=== PATIENT | female | born 1940 | race Caucasian/White ===

== ENCOUNTER → 2018-03-07 | Outpatient (CLI) | payer MEDICARE | END | disposition home or self-care (01) | LOC: RAH 12:22 | PROVIDERS: ATTEND Internal Medicine Endocrinology, Diabetes & Metabolism | DX: E04.2 Nontoxic multinodular goiter (principal) | CPT/HCPCS: 76536 ==

== ENCOUNTER → 2019-03-21 | Outpatient (CLI) | payer MEDICARE | END | disposition home or self-care (01) | LOC: RAH 14:11 | PROVIDERS: ATTEND Internal Medicine Endocrinology, Diabetes & Metabolism | DX: E04.2 Nontoxic multinodular goiter (principal) | CPT/HCPCS: 76536 ==

== ENCOUNTER 2019-06-20 14:22 | Emergency (ER) | payer MEDICARE ==
[2019-06-20] MEDS ORDERED: KETOROLAC TROMETHAMINE 30MG/ML ONE (16:01)
[2019-06-20 16:22] LABS: BASOPHILS % (AUTO) 0.9 % (0.0-5.0); EOSINOPHILS % (AUTO) 0.1 % (0.0-8.0); HEMATOCRIT 42.7 % (36-48); LYMPHOCYTES % (AUTO) 22.5 % (21.0-51.0); MEAN CORPUSCULAR HEMOGLOBIN 30.3 pg (27.0-33.0); MEAN CORPUSCULAR HGB CONC 34.3 g/dL (32.0-36.0); MEAN CORPUSCULAR VOLUME 88.6 fL (79-99); MONOCYTES % (AUTO) 8.7 % (3.0-13.0); NEUTROPHILS % (AUTO) 67.8 % (40.0-77.0); PLATELET COUNT (AUTO) 247 K/uL (130-400); RED BLOOD CELL COUNT(AUTO) 4.82 MIL/uL (4.00-5.50); RED CELL DISTRIBUTION WIDTH 13.8 % (11.0-15.5); WHITE BLOOD COUNT (AUTO) 11.2 K/uL (4.8-10.8)
[2019-06-20 16:31] LABS: POTASSIUM 3.4 mmol/L (3.5-5.1)
[2019-06-20 16:33] LABS: INR 0.99 (0.85-1.15); PARTIAL THROMBOPLASTIN TIME 24.1 SEC (26.3-35.5); PROTHROMBIN TIME 10.4 SEC (9.6-11.6)
[2019-06-20 16:36] LABS: ALBUMIN 3.7 g/dL (3.5-5.0); BILIRUBIN,TOTAL 1.2 mg/dL (0.2-1.0); TOTAL PROTEIN, SERUM 7.3 g/dL (6.0-8.3)
== END 2019-06-20 18:18 | disposition home or self-care (01) ==
LOC: EDH 14:22
DX: M25.562 Pain in left knee (principal); M54.18 Radiculopathy, sacral and sacrococcygeal region; I10 Essential (primary) hypertension; M79.652 Pain in left thigh; Z88.6 Allergy status to analgesic agent; Z88.8 Allergy status to other drugs, medicaments and biological substances
CPT/HCPCS: 36415; 73560; 80053; 85025; 85610; 85730; 93971; 96372; 99285; J1885

== ENCOUNTER → 2019-08-20 | Outpatient (CLI) | payer OTHER | END | disposition home or self-care (01) | LOC: RAH 13:33 | PROVIDERS: ATTEND Internal Medicine Critical Care Medicine | DX: Z13.6 Encounter for screening for cardiovascular disorders (principal) | CPT/HCPCS: 75571 ==

== ENCOUNTER → 2019-11-11 | Outpatient (CLI) | payer MEDICARE ==
[~2019-11-11] VITALS: Ht 170.2 cm; Wt 92.1 kg
[~2019-11-11] MED LIST: REGADENOSON 0.4 MG/5 ML PF SYG IVP SCH
== END | disposition home or self-care (01) ==
LOC: SHCH 08:33
PROVIDERS: ATTEND Internal Medicine Cardiovascular Disease
DX: I10 Essential (primary) hypertension (principal); I51.89 Other ill-defined heart diseases; E78.5 Hyperlipidemia, unspecified; E03.9 Hypothyroidism, unspecified
CPT/HCPCS: 78452; 93017; 96374; A9500 ×2; J2785

== ENCOUNTER → 2019-11-26 | Outpatient (CLI) | payer MEDICARE ==
[~2019-11-26] MED LIST changes: +IOHEXOL 350 MG/ML 100ML INFUS..BTL IV ONE; -REGADENOSON 0.4 MG/5 ML PF SYG IVP SCH
== END | disposition home or self-care (01) ==
LOC: RAH 09:25
PROVIDERS: ATTEND Internal Medicine Cardiovascular Disease
DX: K57.30 Diverticulosis of large intestine without perforation or abscess without bleeding (principal); K44.9 Diaphragmatic hernia without obstruction or gangrene; I70.1 Atherosclerosis of renal artery; I70.0 Atherosclerosis of aorta; M47.816 Spondylosis without myelopathy or radiculopathy, lumbar region; I10 Essential (primary) hypertension; I73.9 Peripheral vascular disease, unspecified; Z90.49 Acquired absence of other specified parts of digestive tract; Z90.710 Acquired absence of both cervix and uterus
CPT/HCPCS: 74174; Q9967

== ENCOUNTER → 2020-03-09 | Outpatient (CLI) | payer MEDICARE | END | disposition home or self-care (01) | LOC: RAH 11:04 | PROVIDERS: ATTEND Internal Medicine Endocrinology, Diabetes & Metabolism | DX: E04.2 Nontoxic multinodular goiter (principal) | CPT/HCPCS: 76536 ==

== ENCOUNTER 2021-04-18 05:54 | Day surgery (SDC) | payer MEDICARE ==
[2021-04-14 11:47] LABS: EOSINOPHILS % (AUTO) 25.6 % (0.0-8.0); HEMATOCRIT 38.5 % (36-48); LYMPHOCYTES % (AUTO) 16.8 % (21.0-51.0); MEAN CORPUSCULAR HEMOGLOBIN 30.4 pg (27.0-33.0); MEAN CORPUSCULAR HGB CONC 32.5 g/dL (32.0-36.0); MEAN CORPUSCULAR VOLUME 93.7 fL (79-99); MONOCYTES % (AUTO) 5.5 % (3.0-13.0); NEUTROPHILS % (AUTO) 50.8 % (40.0-77.0); PLATELET COUNT (AUTO) 198 K/uL (130-400); RED BLOOD CELL COUNT(AUTO) 4.11 MIL/uL (4.00-5.50); RED CELL DISTRIBUTION WIDTH 13.4 % (11.0-15.5); WHITE BLOOD COUNT (AUTO) 11.9 K/uL (4.8-10.8)
[2021-04-14 11:49] LABS: APPEARANCE,URINE Cloudy (CLEAR); BILIRUBIN,URINE Negative (NEGATIVE); COLOR,URINE Dark Yellow (YELLOW); GLUCOSE, URINE (UA) Negative (NEGATIVE); KETONES,URINE Negative (NEGATIVE); LEUKOCYTE ESTERASE ,URINE Moderate (NEGATIVE); NITRATE,URINE Negative (NEGATIVE); OCCULT BLOOD,URINE Small (NEGATIVE); PROTEIN,URINE POS 2+ mg/dL (NEGATIVE)
[2021-04-14 12:17] LABS: BACTERIA,URINE Moderate /HPF (None Seen)
[2021-04-14 12:18] LABS: SQUAMOUS EPITHELIAL CELL,UR Few /HPF (0-2); WBC,URINE 26-50 /HPF (0-1)
[2021-04-14 12:52] LABS: CREATININE 1.1 mg/dL (0.5-1.5); POTASSIUM 4.2 mmol/L (3.5-5.1)
[2021-04-14 13:28] LABS: INR 1.05 (0.85-1.15); PROTHROMBIN TIME 11.4 SEC (9.6-11.6)
[2021-04-14 13:30] LABS: PARTIAL THROMBOPLASTIN TIME 27.8 SEC (26.3-35.5)
[~2021-04-18] VITALS: Ht 170.2 cm; Wt 83.4 kg
[2021-04-18] VITALS (11 sets, daily range): BP systolic 110–134; BP diastolic 46–72
[~2021-04-18 05:54] MED LIST changes: +ASPI-1443 PO; +CARV25TA PO; +CLON0.1T PO; +GABA-529 PO; -IOHEXOL 350 MG/ML 100ML INFUS..BTL IV ONE; +ISOS60TA77 PO; +L.AC1CAP6 PO; +LEVO25CA4 PO; +LOSA100T58 PO; +ROSU20TA31 PO; +VITA1CAP20 PO; +VITAMIN D3 PO
[2021-04-18] MEDS ORDERED: SULF1TAB42 PO (08:18)
[2021-04-18] MEDS ORDERED: NITROGLYCERIN 2 MG VIAL IV ONE (09:05)
[2021-04-18] MEDS ORDERED: SODIUM BICARB 50MEQ 50ML VIAL 50 ML ONE (09:05)
[2021-04-18] MEDS ORDERED: LIDOCAINE HCL 400MG/20ML VIAL ONE (09:05)
[2021-04-18] MEDS ORDERED: HEPARIN 10,000 UNIT/10ML (1,000 UNIT/ML) VIAL ONE (09:05)
[2021-04-18] MEDS ORDERED: IOHEXOL 350 MG/ML 100ML INFUS..BTL IV ONE (09:08)
[2021-04-18] MEDS ORDERED: 0.9%NACL 1000ML 1,000 ML IV ONE (09:21)
[2021-04-18] MEDS ORDERED: MIDAZOLAM HCL 1 MG/ML 2ML VIAL ONE ×3 (10:05→10:33)
[2021-04-18] MEDS ORDERED: MEPERIDINE-PF 25 MG/ML SYG ONE ×3 (10:05→10:33)
[2021-04-18] MEDS ORDERED: IOHEXOL-350 50ML VIAL IV ONE (11:04)
[2021-04-18] MEDS ORDERED: ASPIRIN 325MG EC TAB PO ONE (11:21)
[2021-04-18] MEDS ORDERED: CLOPIDOGREL 300MG TAB ONE (11:22)
[2021-04-18] MEDS ORDERED: 0.9%NACL 1000ML 1,000 ML IV SCH (11:45)
[2021-04-18] MEDS ORDERED: ACETAMINOPHEN WITH CODEINE 1 TAB TAB ONE (14:50)
[2021-04-18] MEDS ORDERED: ACETAMINOPHEN WITH CODEINE 1 TAB TAB PO PRN ×2 (17:45)
== END 2021-04-18 17:34 | disposition home or self-care (01) ==
LOC: DAH 05:54
PROVIDERS: ATTEND Internal Medicine Cardiovascular Disease
DX: I15.0 Renovascular hypertension (principal); I25.119 Atherosclerotic heart disease of native coronary artery with unspecified angina pectoris; I77.4 Celiac artery compression syndrome; R63.4 Abnormal weight loss; F41.0 Panic disorder [episodic paroxysmal anxiety]; Q25.0 Patent ductus arteriosus; Z79.01 Long term (current) use of anticoagulants; Z79.899 Other long term (current) drug therapy; Z98.890 Other specified postprocedural states
CPT/HCPCS: 36245; 36252; 36415 ×2; 37236; 37237; 71045; 75726; 80048; 81001; 85025; 85347; 85610; 85730; 87077; 87088; 87186; 93005; 93458; A4215; A4216; A4221; A4222; A4223 ×3; A4606; A4663; C1760; C1769 ×3; C1876 ×4; C1887; C1894; J1644 ×2; J2175 ×3; J2250 ×3; J3490 ×3; J7030; Q9965 ×2; Q9967 ×2; 99156; 99157

== ENCOUNTER → 2021-06-22 | Outpatient (CLI) | payer MEDICARE ==
[~2021-06-22] MED LIST changes: +SULF1TAB42 PO
== END | disposition home or self-care (01) ==
LOC: SHCH 14:23
PROVIDERS: ATTEND Internal Medicine Cardiovascular Disease
DX: I25.10 Atherosclerotic heart disease of native coronary artery without angina pectoris (principal); I65.23 Occlusion and stenosis of bilateral carotid arteries
CPT/HCPCS: 93880

== ENCOUNTER → 2022-10-18 | Outpatient (CLI) | payer MEDICARE | END | disposition home or self-care (01) | LOC: RAH 13:16 | PROVIDERS: ATTEND Internal Medicine Critical Care Medicine | DX: N64.4 Mastodynia (principal); R92.8 Other abnormal and inconclusive findings on diagnostic imaging of breast | CPT/HCPCS: 76641; 77066 ==

== ENCOUNTER 2023-06-07 03:00 | Emergency (ER) | payer MEDICARE ==
[~2023-06-07] VITALS: Ht 170.2 cm; Wt 89.8 kg
[~2023-06-07 03:00] MED LIST changes: -LOSA100T58 PO; +LOSA100T59 PO; -ROSU20TA31 PO; +ROSU20TA73 PO
[2023-06-07 03:31] LABS: BILIRUBIN,URINE NEGATIVE (NEGATIVE); GLUCOSE, URINE (UA) NEGATIVE (NEGATIVE); KETONES,URINE NEGATIVE (NEGATIVE); LEUKOCYTE ESTERASE ,URINE NEGATIVE Leu/uL (NEGATIVE); NITRATE,URINE NEGATIVE (NEGATIVE); OCCULT BLOOD,URINE LARGE (NEGATIVE); PROTEIN,URINE >=300 mg/dL (NEGATIVE); UROBILINOGEN,URINE 0.2 mg/dL (0.2-1.0)
[2023-06-07 03:32] LABS: BASOPHILS # (AUTO) 0.05 K/uL (0.00-0.20); BASOPHILS % (AUTO) 0.5 % (0.0-5.0); HEMATOCRIT 40.6 % (36-48); IMMATURE GRANULOCYTE ABSOLUTE 0.03 K/uL (0-1); LYMPHOCYTES # (AUTO) 2.6 K/uL (1.0-4.8); LYMPHOCYTES % (AUTO) 26.8 % (21.0-51.0); MEAN CORPUSCULAR HEMOGLOBIN 30.2 pg (27.0-33.0); MEAN CORPUSCULAR VOLUME 91.6 fL (79-99); MONOCYTES # (AUTO) 0.8 K/uL (0.1-1.0); MONOCYTES % (AUTO) 7.8 % (3.0-13.0); NEUTROPHILS # (AUTO) 6.2 K/uL (1.8-7.7); NEUTROPHILS % (AUTO) 62.6 % (40.0-77.0); PLATELET COUNT (AUTO) 192 K/uL (130-400); RED BLOOD CELL COUNT(AUTO) 4.43 MIL/uL (4.00-5.50); RED CELL DISTRIBUTION WIDTH 13.2 % (11.0-15.5); WHITE BLOOD COUNT (AUTO) 9.9 K/uL (4.8-10.8)
[2023-06-07 03:34] LABS: ADD UA MICROSCOPIC YES; APPEARANCE,URINE TURBID (CLEAR); COLOR,URINE RED (YELLOW)
[2023-06-07 03:36] LABS: BACTERIA,URINE Rare /HPF (None Seen); RBC,URINE TNTC /HPF (0-1); SQUAMOUS EPITHELIAL CELL,UR Few /HPF (0-2); WBC,URINE 0-1 /HPF (0-1)
[2023-06-07 03:40] LABS: POTASSIUM 4.5 mmol/L (3.5-5.1)
[2023-06-07] MEDS ORDERED: CEFTRIAXONE 1G VIAL IVPB ONE (05:30)
[2023-06-07 08:01] VITALS: BP 151/70; PULSE 71; RESP 18; O2SAT 99
[2023-06-07] MEDS ORDERED: PHEN-847 PO (09:52)
[2023-06-07] MEDS ORDERED: CEPH500T PO (09:52)
== END 2023-06-07 10:16 | disposition home or self-care (01) ==
LOC: EDH 03:00
DX: R31.9 Hematuria, unspecified (principal); N30.90 Cystitis, unspecified without hematuria
CPT/HCPCS: 99285; 74176; 96374; 76770; 80048; 85025; 81001; 36415; 51702; J0696